=== PATIENT | female | born 2000 | race Two or more races ===

== ENCOUNTER 2025-04-26 19:27 | Emergency (ER) | payer OTHER ==
[~2025-04-26] VITALS: Ht 165.1 cm; Wt 81.6 kg
[2025-04-26 21:39] LABS: APPEARANCE,URINE CLEAR (CLEAR); BLOOD, URINE NEGATIVE Ery/uL (NEGATIVE); LEUKOCYTE ESTERASE ,URINE NEGATIVE (NEGATIVE); NITRITE, URINE NEGATIVE (NEGATIVE); UGLUCOSE NEGATIVE (NEGATIVE)
[2025-04-26 21:44] LABS: PREGNANCY TEST URINE QUAL NEGATIVE (NEGATIVE)
[2025-04-26] MEDS ORDERED: IBUPROFEN 400 MG TABLET ONE (22:21)
[2025-04-26] MEDS: IBUPROFEN 400 MG TABLET PO ONE (22:25)
[2025-04-26 22:29] VITALS: BP 125/88; TEMP 98.6; O2SAT 98
== END 2025-04-26 22:27 | disposition home or self-care (01) ==
LOC: ER 19:33
DX: R51.9 Headache, unspecified (principal)
CPT/HCPCS: 70450-TC; 84703-TC